=== PATIENT | female | born 1985 ===

== ENCOUNTER 2016-11-19 08:49 | Day surgery (SDC) | payer BC ==
[2016-11-19 10:03] VITALS: BMI 29.4
[2016-11-19] MEDS ORDERED: Propofol 10 mg/ml Inj (20 ML) ONE (12:25)
[2016-11-19] MEDS ORDERED: Lactated Ringer's 500 ML IV SCH (12:45)
[2016-11-19 12:49] VITALS: TEMP 97.5
[2016-11-19 14:20] VITALS: BP 110/66; PULSE 66; RESP 18; O2SAT 98
== END 2016-11-19 13:35 | disposition home or self-care (01) ==
LOC: C.ENDO 08:49
PROVIDERS: ATTEND Internal Medicine Gastroenterology
DX: R10.12 Left upper quadrant pain (principal); K29.70 Gastritis, unspecified, without bleeding
CPT/HCPCS: 43239; 84703; 88305; J2704; J7120